=== PATIENT | male | born 1965 | race Caucasian/White ===

== ENCOUNTER → 2018-06-01 | Day surgery (SDC) | payer OTHER ==
[~2018-06-01] MED LIST: FENTAnyl 50 MCG/ML VIAL; MIDAZOLAM 1 MG/ML 2 ML INJ
== END | disposition home or self-care (01) ==
LOC: GIL 10:12
DX: Z12.11 Encounter for screening for malignant neoplasm of colon (principal); K64.8 Other hemorrhoids; K57.90 Diverticulosis of intestine, part unspecified, without perforation or abscess without bleeding
CPT/HCPCS: 45378